=== PATIENT | female | born 1980 | race Caucasian/White ===

== ENCOUNTER 2023-08-28 09:27 | Inpatient (IN) | payer OTHER, SELFPAY ==
[2023-08-28] VITALS (11 sets, daily range): BP systolic 103–173; BP diastolic 55–92; PULSE 56–103; RESP 12–20; TEMP 36.3–37.3; O2SAT 97–100; BMI 21.6
--- NOTE | ~2023-08-28 | US_ITS ---
EXAMINATION: US ABDOMEN LIMITED CLINICAL INFORMATION: Right upper quadrant pain. Question biliary colic. COMPARISON: None available. TECHNIQUE: Real-time imaging of the right upper quadrant abdominal viscera. FINDINGS: PANCREAS: Normal. LIVER: Normal. The liver is normal in size. The liver contour is normal. Parenchymal echogenicity is normal. No focal hepatic lesion. There is no intrahepatic biliary duct dilatation seen. GALLBLADDER: There are echogenic gallstones with mild gallbladder wall thickening measuring 0.9 seen. Minimal pericolic fluid is noted COMMON BILE DUCT: Normal in caliber measuring 0.31, 0.7 cm in diameter. RIGHT KIDNEY: Normal. No hydronephrosis. No renal calculi or focal parenchymal lesions. The kidney measures 11.6 cm in maximum dimension. FREE FLUID: None. US/US abdomen limited IMPRESSION: 1. Cholelithiasis with mild gallbladder wall thickening and minimal pericolic fluid. 2. Visualized pancreas, liver, right kidney and CBD is unremarkable.
[2023-08-28 09:49] LABS: MANUAL DIFF FLAG NO
[2023-08-28 09:52] LABS: Basophils Percent Auto 0.3 % (0-2); Eosinophils Percent Auto 0.3 % (0-4); Hematocrit 40.8 % (37.0-47.0); Hemoglobin 13.3 g/dl (12.0-16.0); Imm Gran Abs Auto 0.02 X10*3/uL (0.00-0.03); Imm Gran Pct Auto 0.3 % (0.0-0.4); Lymphocytes Absolute Auto 1.5 X10*3/uL (1.2-4.9); Lymphocytes Percent Auto 19.5 % (20-40); Mean Corpuscular HGB Conc 32.6 g/dl (31.0-35.0); Mean Corpuscular Hemoglobin 28.2 pg (27.0-33.0); Mean Corpuscular Volume 86.6 fL (80.0-98.0); Mean Platelet Volume 10.4 fL (9.4-12.3); Monocytes Absolute Auto 0.7 X10*3/uL (0.1-1.2); Monocytes Percent Auto 9.1 % (2-11); Neutrophils Absolute Auto 5.6 x10*3/uL (2.0-8.3); Neutrophils Percent Auto 70.5 % (45-73); Platelet Count 228 X10*3/uL (160-400); Red Blood Count 4.71 X10*6/uL (4.20-5.50); Red Cell Distribution Width 12.8 % (11.0-16.0); White Blood Count 7.9 X10*3/uL (4.8-10.8)
[2023-08-28 10:09] LABS: Appearance Urine Cloudy; Color Urine Dark Yellow; Glucose Urine UA Negative (Negative); Leukocyte Esterase Urine Negative (Negative); Nitrite Urine Negative (Negative); PH 7.5 (5.0-9.0); Specific Gravity - Urine 1.025 (1.005-1.025); UMIC TRIGGER UACC YES; Urine Blood Trace (Negative); Urine Ketones Trace mg/dL (Negative); Urine Protein Trace mg/dL (Neg-Trace)
[2023-08-28 10:11] LABS: Bacteria Urine Trace (None Seen); Hyaline Casts Urine 0-2 /LPF (0-2); WBC Urine 0-5 /HPF (0-5)
[2023-08-28 10:16] LABS: Alanine Aminotransferase 8 U/L (0-31); Albumin Level 4.7 g/dL (3.5-5.0); Alkaline Phosphatase 56 U/L (39-117); Anion Gap 11 (12-20); Aspartate Amino Transferase 16 U/L (5-31); Bilirubin Direct 0.3 mg/dL (0.0-0.5); Bilirubin Total 0.6 mg/dL (0.0-1.0); Blood Urea Nitrogen 6 mg/dL (9-16); Calcium 9.5 mg/dL (8.4-10.2); Carbon Dioxide 26 mmol/L (22-29); Chloride 104 mmol/L (96-108); Creatinine Clr Calc Pharmacy 101.4; Estimated Glomerular Filt Rate > 60; Glucose Random 129 mg/dL (60-115); Lipase 11 U/L (8-78); Magnesium 2.1 mg/dL (1.6-2.6); Potassium 3.5 mmol/L (3.3-5.1); Sodium 137 mmol/L (135-145); Total Protein 8.3 g/dL (6.5-8.0)
[2023-08-28 10:18] LABS: HCG Quantitative < 2 mIU/mL
--- NOTE | 2023-08-28 11:36 | ED_ITS ---
HPI - General Adult General Chief complaint: Abdominal Pain Stated complaint: Gallbladder Attack Time Seen by Provider: 08/28/23 11:36 Source: patient Mode of arrival: ambulatory Limitations: no limitations History of Present Illness HPI narrative: Patient is a 42 year old assigned female at with no reported medical history presenting to the emergency department today with right upper quadrant abdominal pain. Patient states that over the last 4 days she has been having right upper quadrant abdominal pain. Patient states that she had a similar episode in May of 2023 but it resolved quicker than this. Patient denies any dizziness, lightheadedness, nausea, vomiting, fever, chills, blurry vision, double vision, loss of vision, chest pain, difficulty breathing, shortness of breath, back pain, night sweats, pain with urination, increased urinary frequency, increased urinary urgency, blood in her urine or stool, syncope or a near syncopal episode, recent trauma or falls, bowel incontinence, bladder incontinence, bowel retention, bladder retention, or any other complaints at this time. Onset (ago): day(s) (4) Location: abdomen Radiation: back Severity: mild Severity scale (1-10): 5 Quality: aching and dull Pain Consistency: constant Relieving factors: none Exacerbating factors: none Associated symptoms: denies other symptoms Treatments prior to arrival: none Related Data Home Medications Medication Instructions Recorded Confirmed buprenorphine HCl 2 mg sublingual 2 mg sublingual DAILY 08/28/23 tablet Allergies Allergy/AdvReac Type Severity Reaction Status Date / Time No Known Allergies Allergy Verified 08/28/23 09:42 Review of Systems 2 Constitutional: Constitutional: Reports no additional constitutional complaints, Denies chills, Denies fever(s) and Denies night sweats Eyes: Eyes: Reports no additional eye complaints, Denies blurry vision, Denies change in vision, Denies diplopia, Denies eye discharge, Denies loss of vision and Denies eye pain ENT: Denies dizziness Cardiovascular: Cardiovascular: Reports no additional cardiovascular complaints, Denies chest pain, Denies lightheadedness, Denies Loss of Consciousness and Denies dyspnea Respiratory: Respiratory: Reports no additional respiratory complaints and Denies dyspnea Gastrointestinal: Gastrointestinal: Reports no additional gastrointestinal complaints, Reports abdominal pain, Denies melena, Denies hematochezia, Denies change in bowel habits and Denies change in stool character Genitourinary: Genitourinary: Denies hematuria, Denies urinary frequency, Denies dysuria, Denies urinary incontinence, Denies urinary hesitancy and Denies urinary urgency Musculoskeletal: Musculoskeletal: Reports no additional musculoskeletal complaints, Denies numbness and Denies tingling Neurologic: Denies dizziness, Denies loss of vision, Denies numbness and Denies tingling Psychiatric: Psychiatric: Reports no additional psychiatric complaints Endocrine: Endocrine: Reports no additional endocrine complaints Hematologic/Lymphatic: Hematologic/Lymphatic: Reports no additional hematologic/lymphatic complaints Allergic/Immunologic: Allergic/Immunologic: Reports no additional allergic/immunologic complaints [facility] Past Medical History Attestation statement: The following information was validated with the patient. Source: old records reviewed and nursing notes reviewed Social History Social History Alcohol intake: current Alcohol intake frequency: a few times a month Smoked in Last 30 Days: No Use of substances other than those prescribed or required for medical reasons: Yes Substance Use Type: Marijuana Substance Use Frequency: Daily Last Used Substance: Days (ago) Any prior treatment program specific to substance use: No Advance Directives: No Physical Exam ED Vital Signs: Vital Signs - 24 hr 08/28/23 09:40 Temperature 98.1 F Pulse Rate 103 H Respiratory Rate 18 Blood Pressure 173/92 H Pulse Oximetry 100 Oxygen Delivery Method Room Air BMI result Body Mass Index 21.6 Const General: cooperative, no acute distress, alert and awake Nutritional Appearance: well nourished Orientation/consciousness: patient oriented x3 Limitations: no limitations HENMT Head: Yes normal to inspection and Yes atraumatic Ears: hearing grossly normal bilaterally and external ears normal General nose exam: Normal external nose present, no nasal discharge noted and no epistaxis Face and sinus: Yes normal facial exam, No abrasion and No laceration Mouth: Normal oral and palatal mucosa present, no drooling and no muffled voice Eyes General: appearance normal, both eyes and all related structures Periorbital: periorbital findings normal Eyelids: Yes eyelids normal Conjunctivae: conjunctivae normal Pupils: Equal, round and reactive pupils present EOM: EOMs intact bilaterally Neck Neck: Yes normal visual inspection, Yes full ROM and Yes no lymphadenopathy Chest Chest palpation & inspection: normal inspection of the chest Resp Effort & Inspection: normal respiratory effort and able to speak in complete sentences GI Inspection: Yes normal to inspection Palpation (GI): Soft to palpation, not firm, Tenderness to palpation present (GI) in the RUQ, no guarding and not rigid Neuro General: patient oriented x3 and moves all extremities Cranial nerves: Yes Equal, round and reactive pupils present Cognition (Neuro): normal cognition Motor exam (neuro): 5/5 motor strength present throughout Sensory Exam: Normal double simultaneous stimulation for sensation Coordination: [id number] test normal Extrem General: Yes normal to inspection, Yes full ROM and Yes capillary refill normal Psych Appearance: grossly normal Mental Status: mental status grossly normal Affect: normal affect Attitude: cooperative Thought process: Normal thought process present Thought content: Normal thought content present Insight: Good insight present (Psych) Medical Decision Making Medical Decision Making MDM Narrative: Patient is a 42 year old assigned female at with no reported medical history presenting to the emergency department today with abdominal pain. Patient's physical exam was as noted in the physical exam portion of this note. Patient's blood work was unremarkable. Patient's urine showed no acute process. Patient's abdominal US showed cholelithiasis with thickening of the gallbladder wall. I spoke to the general surgeon who stated the patient should remain NPO and be admitted to their service for surgery later today or tomorrow. They also suggested that if the patient was persistent about leaving, she could trial a liquid only diet and antibiotics. I discussed both option with the patient and she opted for surgery. I explained my physical exam findings as well as all test results to the patient. I answered all questions asked by the patient. Patient verbalized agreement and understanding with this treatment plan and admission for eventual surgery. Differential Diagnosis Differential Diagnoses: The differential diagnosis associated with the presentation includes Cholelithiasis Cholecystitis Biliary colic Abdominal pain Admission/Observation Consideration of admission/observation: Escalation of care including admission/observation considered Patient admitted to the surgical service. Consult Healthcare Provider Management of the patient was discussed with: [employer] (spoke with the surgeon as noted in the MDM Rationale portion of this note. ) Lab Data [facility] Lab Attestation statement: I reviewed the patient's lab results. My interpretation of these studies and their corresponding values is that they are grossly normal. 08/28/23 09:46 08/28/23 09:46 Labs: Lab Results 08/28/23 08/28/23 Range/Units 09:46 09:50 WBC 7.9 (4.8-10.8) X10*3/uL RBC 4.71 (4.20-5.50) X10*6/uL Hgb 13.3 (12.0-16.0) g/dl Hct 40.8 (37.0-47.0) % MCV 86.6 (80.0-98.0) fL MCH 28.2 (27.0-33.0) pg MCHC 32.6 (31.0-35.0) g/dl RDW 12.8 (11.0-16.0) % Plt Count 228 (160-400) X10*3/uL MPV 10.4 (9.4-12.3) fL Immature Gran % (Auto) 0.3 (0.0-0.4) % Neut % (Auto) 70.5 (45-73) % Lymph % (Auto) 19.5 L (20-40) % [place] % (Auto) 9.1 (2-11) % Eos % (Auto) 0.3 (0-4) % Baso % (Auto) 0.3 (0-2) % Lymph # (Auto) 1.5 (1.2-4.9) X10*3/uL [place] # (Auto) 0.7 (0.1-1.2) X10*3/uL Eos # (Auto) 0.0 (0.0-0.4) X10*3/uL Baso # (Auto) 0.0 (0.0-0.2) X10*3/uL Abs Immat Gran (auto) 0.02 (0.00-0.03) X10*3/uL Absolute Neuts (auto) 5.6 (2.0-8.3) x10*3/uL Absolute Nucleated RBC 0.000 (0.0-0.012) X10*3/uL Nucleated RBC % (auto) 0.0 (0.0-0.2) /100WBC Sodium 137 (135-145) mmol/L Potassium 3.5 (3.3-5.1) mmol/L Chloride 104 (96-108) mmol/L Carbon Dioxide 26 (22-29) mmol/L Anion Gap 11 L (12-20) BUN 6 L (9-16) mg/dL Creatinine 0.69 (0.5-1.4) mg/dL Estim Creat Clear Calc 101.4 Estimated GFR > 60 Random Glucose 129 H (60-115) mg/dL Calcium 9.5 (8.4-10.2) mg/dL Magnesium 2.1 (1.6-2.6) mg/dL Total Bilirubin 0.6 (0.0-1.0) mg/dL Direct Bilirubin 0.3 (0.0-0.5) mg/dL AST 16 (5-31) U/L ALT 8 (0-31) U/L Alkaline Phosphatase 56 (39-117) U/L Total Protein 8.3 H (6.5-8.0) g/dL Albumin 4.7 (3.5-5.0) g/dL Lipase 11 (8-78) U/L Beta HCG, Quant < 2 mIU/mL Urine Color Dark Yellow Urine Appearance Cloudy Urine pH 7.5 (5.0-9.0) Ur Specific [place] 1.025 (1.005-1.025) Urine Protein Trace (Neg-Trace) mg/dL Urine Glucose (UA) Negative (Negative) mg/dL Urine Ketones Trace (Negative) mg/dL Urine Blood Trace H (Negative) Urine Nitrite Negative (Negative) Ur Leukocyte Esterase Negative (Negative) Urine RBC 11-20 H (0-2) /HPF Urine WBC 0-5 (0-5) /HPF Ur Squamous Epith Cells 6-10 (0-2) /HPF Urine Bacteria Trace (None Seen) Hyaline Casts 0-2 (0-2) /LPF Independent Interpretation I performed an independent interpretation of an: Ultrasound Interpretation: My interpretation is in agreement with the radiologist's impression of this imaging study. - EXAMINATION: US ABDOMEN LIMITED CLINICAL INFORMATION: Right upper quadrant pain. Question biliary colic. COMPARISON: None available. TECHNIQUE: Real-time imaging of the right upper quadrant abdominal viscera. FINDINGS: PANCREAS: Normal. LIVER: Normal. The liver is normal in size. The liver contour is normal. Parenchymal echogenicity is normal. No focal hepatic lesion. There is no intrahepatic biliary duct dilatation seen. GALLBLADDER: There are echogenic gallstones with mild gallbladder wall thickening measuring 0.9 seen. Minimal pericolic fluid is noted COMMON BILE DUCT: Normal in caliber measuring 0.31, 0.7 cm in diameter. RIGHT KIDNEY: Normal. No hydronephrosis. No renal calculi or focal parenchymal lesions. The kidney measures 11.6 cm in maximum dimension. FREE FLUID: None. US/US abdomen limited IMPRESSION: 1. Cholelithiasis with mild gallbladder wall thickening and minimal pericolic fluid. 2. Visualized pancreas, liver, right kidney and CBD is unremarkable. Dictated By: Aneesh Gomez MD Signed By: Electronically signed by Aneesh Gomez MD 08/28/23 1110 Radiology Impression Discussion of test interpretation with radiology: I have reviewed the radiologist's reading. Critical Care Time Critical Care Time Critical Care Time: Yes Total Critical Care Time: 45 Attestation: I spent 45 minutes of Critical Care Time with this patient. This does not include time spent on separately reported billable procedures. Discharge Plan Discharge Clinical Impression: Cholelithiasis, Acute cholecystitis Patient Disposition: Admitted As Inpatient
--- NOTE | 2023-08-28 13:44 | PHA.MEDREC ---
Pharmacy Consult ? Medication Reconciliation Pharmacy has completed the medication reconciliation, verified with patient. Patient also stated she took a 5mg edible at 0630 with buprenorphine.
--- NOTE | 2023-08-28 16:38 | PC.NURSE ---
pt taken to pacu fluids not given
--- NOTE | 2023-08-28 16:39 | PC.NURSE ---
pt taked to OR via PACU nurses
--- NOTE | 2023-08-28 17:18 | PM.HPGS ---
History of Present Illness History of Present Illness Date of Service: 08/28/23 Chief complaint: Gallbladder Attack Narrative: Julia Marte is a 42 year old female Who started having epigastric right upper quadrant pain Sunday which is been ongoing all weekend. It kept her up all night and she has not been able the eat and drink. She did start feeling a bit better but as soon as she ate something started feeling the pain get worse. It got bad last night into today so she came into the emergency. Here ultrasound shows gallstones and some thickening of the gallbladder wall and tenderness in the right upper quadrant. Her LFTs are all within normal limits. She has never been told that she had gallbladder problems but since May she has been having smaller attacks similar to this. Review of Systems Review of Systems: Yes all other systems are reviewed and are negative [facility] Social History Social History Alcohol intake: current Alcohol intake frequency: a few times a month Smoked in Last 30 Days: No Use of substances other than those prescribed or required for medical reasons: Yes Substance Use Type: Marijuana Substance Use Frequency: Daily Last Used Substance: Days (ago) Any prior treatment program specific to substance use: No Advance Directives: No Travel History Ebola Risk: Travel/Contact With Anyone From Affected Area/s: No Has Patient Experienced Ebola Symptoms: No Meds Allergies Allergy/AdvReac Type Severity Reaction Status Date / Time No Known Allergies Allergy Verified 08/28/23 09:42 Active Medications: Current Medications Sodium Chloride (Ns) 1,000 mls @ 100 mls/hr IVCONT .Q10H EDILBERTO Last Admin: 08/28/23 16:38 Dose: Not Given Cefazolin Sodium 2 gm/ Sodium (Chloride) 100 mls @ 200 mls/hr IV ONCE STA Stop: 08/28/23 17:46 Ondansetron HCl (Ondansetron Hcl 4 Mg/2 Ml Vial) 4 mg IVPUSH Q6H PRN PRN Reason: Nausea and Vomiting Home Medications Medication Instructions Recorded Confirmed Last Taken Type buprenorphine HCl 2 mg sublingual 2 mg sublingual DAILY 08/28/23 08/28/23 08/28/23 06:30 History tablet Physical Exam Vital Signs: Vital Signs: Last Vital Signs Temp 98.4 F 08/28/23 16:50 Pulse 95 08/28/23 16:50 Resp 20 08/28/23 16:50 BP 146/79 H 08/28/23 16:50 Pulse Ox 99 08/28/23 16:50 O2 Del Method Room Air 08/28/23 16:50 BMI result Body Mass Index 21.6 Const: General: cooperative, healthy appearing, comfortable and no acute distress Orientation/consciousness: patient oriented x3 Eyes: Other: Nonicteric Neck: Other: soft supple Neck: Yes normal visual inspection Cardio: Rate: regular rate Rhythm: regular rhythm GI: Other: soft nondistended generally nontender at this point except with deep palpation little bit in the right upper quadrant area. Skin: Other: Nonicteric Neuro: General: patient oriented x3 Psych: Appearance: grossly normal Affect: normal affect Attitude: cooperative Thought process: Normal thought process present Thought content: Normal thought content present Insight: Good insight present (Psych) Judgement: Good judgement present (Psych) Results Results Labs: Short CBC 08/28/23 Range/Units 09:46 WBC 7.9 (4.8-10.8) X10*3/uL Hgb 13.3 (12.0-16.0) g/dl Hct 40.8 (37.0-47.0) % Plt Count 228 (160-400) X10*3/uL BMP 08/28/23 09:46 Sodium 137 Potassium 3.5 Chloride 104 Carbon Dioxide 26 BUN 6 L Creatinine 0.69 Calcium 9.5 Liver Function 08/28/23 Range/Units 09:46 Total Bilirubin 0.6 (0.0-1.0) mg/dL Direct Bilirubin 0.3 (0.0-0.5) mg/dL AST 16 (5-31) U/L ALT 8 (0-31) U/L Alkaline Phosphatase 56 (39-117) U/L Albumin 4.7 (3.5-5.0) g/dL Urine 08/28/23 Range/Units 09:50 Urine Color Dark Yellow Urine Appearance Cloudy Urine pH 7.5 (5.0-9.0) Ur Specific [place] 1.025 (1.005-1.025) Urine Protein Trace (Neg-Trace) mg/dL Urine Glucose (UA) Negative (Negative) mg/dL Assessment and Plan (1) Acute cholecystitis: Status: Acute Plan 42-year-old female with epigastric pain right upper quadrant probably secondary to biliary colic maybe early cholecystitis. Patient has been having ongoing symptoms since of May but now the last couple days it has been much worse. She traveled during back home here while not feeling well and at this point has not made much improvement such that she still can not eat or drink well without getting this pain. At this point I think carrying out laparoscopic cholecystectomy is her best option for this known biliary disease. Risks and benefits discussed with patient including but not limited to bleeding infection the possible open procedure possible bowel injury possible bile duct injury possible organ injury and despite tissue wishes to proceed. Will plan on carrying out her surgery today. She talked about wanting to travel this weekend to go see her son sports event in [place] and I did discuss that I am not convinced that this can happen but that I think that she really does need to have her gallbladder out otherwise there is a good chance that she has a bad attack before the weekend. She is in agreement to having the surgery in and seeing how she does afterwards. Quality Stroke Does the patient have a stroke diagnosis?: No VTE Prior VTE?: No VTE Risk Level:: Surgical - low VTE Device Contraindication: N/A - Device Ordered VTE Drug Contraindication: Treatment Not Indicated Procedures Date of Service Date of Service: 08/28/23
--- NOTE | 2023-08-28 19:46 | P.OP_ITS ---
Operative Note Operative Note Date of Service: 08/28/23 Narrative: Preop diagnosis-- biliary colic chronic cholecystitis Postop diagnosis-- acute and chronic cholecystitis Procedure done-- laparoscopic cholecystectomy Surgeon--Mykel Anesthesia--general endotracheal tube anesthesia Patient is a 42-year-old female who has been having epigastric pain nausea vomiting for the last several days. Workup in the ER revealed normal labs but ultrasound showed thickened gallbladder gallstones and she was tender in the right upper quadrant area with ultrasound. As a result she comes in now to undergo laparoscopic cholecystectomy Findings- 2 large stones impacted in the gallbladder neck gallbladder chronically thickened. Procedure-- Patient is brought to the operative room and under anesthesia guidance intubated. She a compression stockings placed before induction received preo perative antibiotics. Her abdomen was prepped and draped in standard surgical fashion. An infraumbilical incision was created after numbing of the area with 0.25% Marcaine and epinephrine. Dissection was carried down to the anterior abdominal wall fascia which was grasped with Tutu is and transected. 0 Vicryl pursestring suture placed. A son trocar introduced pneumoperitoneum established to 15 mmHg pressure. The gallbladder was identified in the right upper quadrant. She was positioned had up and little bit left side down. Three 5 mm ports were then placed under direct visualization 1 in the epigastric area into in a right upper quadrant area. The gallbladder was grasped and retracted superiorly and laterally. The neck of the gallbladder was dissected and it was felt that there was a stone impacted here. This was elevated and eventually moved out and now we can not retract the neck of the gallbladder little bit better laterally. The cystic duct was dissected out and then a vessel that was determined to be the cystic artery. Cystic duct was clipped twice down 1 up and transected the cystic artery also was transected and clipped. In further dissection was noted and we could see before a large right hepatic artery and coming off of this was another branch of the cystic artery. With careful dissection week were able is stay close to the gallbladder and the larger artery went into the liver while 2 other branches went straight into the gallbladder these were eventually clipped and transected. Staying close to the gallbladder all the time we were able to with the hook cautery get off the liver base. This was achieved in the gallbladder was placed in Endo-Catch bag and removed from the infraumbilical port site. Because a little stones were so large we required making the fascial opening moderately bigger to get out the gallbladder which was thickened distended and these large stones. New peritoneum was then reestablished and the cystic duct stump and clipped vessels were examined and looked intact. The liver base looks fine. The ports were then removed under direct visualization was no bleeding going on. The infraumbilical port site was then closed with running 0 Vicryl suture. This closed the fascial opening well the umbilical area was then reimbricated as the process of opening up the fascia it was elevated a little bit at the umbilical stalk. 4-0 Vicryl was then used to tack down the umbilical area a little bit better to create a good cosmetic result. Four Monocryl was then used in a running subcuticular fashion to approximate the skin edges and then used on the 5 mm ports to close the skin area. More local had been used in all these ports and the infraumbilical port area on the fascia. At the end of the case all sponge instrument and needle counts were correct estimated blood loss was about 5 cc specimen sent was the gallbladder.
[2023-08-28] MEDS: droPERidol 5 MG/2 ML VIAL 0.625 MG IVPUSH (19:48)
[2023-08-29] MEDS: 0.9 % Sodium Chloride 1,000 ML 100 ML IVCONT (00:47)
[2023-08-29] MEDS: Ketorolac Tromethamine 30 MG/ML VIAL 15 MG IVPUSH (00:53)
[2023-08-29 03:52] VITALS: BP 104/55; PULSE 60; RESP 16; TEMP 37.2; O2SAT 98
[2023-08-29] MEDS: Famotidine 20 MG TABLET PO (06:17)
[2023-08-29 08:00] VITALS: BP 118/63; PULSE 57; RESP 18; TEMP 36.9; O2SAT 99
[2023-08-29] MEDS: Buprenorphine HCL 2 MG TAB.SUBL SUBLINGUAL (08:18)
--- NOTE | 2023-08-29 08:33 | HO.POSTANES ---
Post Anesthesia Evaluation Post Anesthesia Evaluation Date of Service: 08/29/23 Vital Signs: Vital Signs Temp Pulse Resp BP Pulse Ox O2 Del Method 08/29/23 08:00 98.5 F 57 18 118/63 99 Room Air 08/29/23 03:52 98.9 F 60 16 104/55 L 98 Room Air Anesthesia: General Endotracheal-GETA Mental Status: Awake Pain Control: Satisfactory Nausea/Vomiting: None Hydration: Adequate Anesthesia-Related Issues: No Anes. Related Issues
--- NOTE | 2023-08-29 09:34 | MHC.CM.PN ---
CM MET WITH PT AT BEDSIDE. PT IS INDEPENDENT AT BASELINE . 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 WILLING TO COMPLETE A HCP NO PCP ([facility] PROVIDED) DP: HOME, NO SERVICES ANTICIPATED. SPOUSE WILL TRANSPORT HOME. CM WILL CONTINUE TO FOLLOW FOR ANY CHANGE IN DC PLAN/NEEDS
--- NOTE | 2023-08-29 10:08 | P.PNGS_ITS ---
Subjective Subjective Date of Service: 08/29/23 Interval history: Underwent laparoscopic cholecystectomy last 9 has good pain control feels well overall states she is ready to go home tolerating diet Physical Exam 2 Vital Signs: Vital Signs: Last Vital Signs Temp 98.5 F 08/29/23 08:00 Pulse 57 08/29/23 08:00 Resp 18 08/29/23 08:00 BP 118/63 08/29/23 08:00 Pulse Ox 99 08/29/23 08:00 O2 Del Method Room Air 08/29/23 08:00 O2 Flow Rate 2 08/28/23 19:49 FiO2 41 08/28/23 20:04 BMI result Body Mass Index 21.6 Const: General: comfortable and no acute distress Eyes: Other: nonicteric Resp: Effort & Inspection: normal respiratory effort Cardio: Rate: regular rate GI: Other: dressings dry Palpation (GI): Soft to palpation, not firm and no guarding Objective Data Active Medications Buprenorphine HCl (Buprenorphine Hcl 2 Mg Tab.Subl) 2 mg SUBLINGUAL DAILY [facility] Last Admin: 08/29/23 08:18 Dose: 2 mg Documented By: SD Famotidine (Famotidine 20 Mg Tablet) 20 mg PO BID@0630,1630 [facility] Last Admin: 08/29/23 06:17 Dose: 20 mg Documented By: NIEVES Sodium Chloride (Ns) 1,000 mls @ 100 mls/hr IVCONT .Q10H [facility] Last Admin: 08/29/23 02:03 Dose: Not Given Documented By: NIEVES Non-Admin Reason: IV Running Cefazolin Sodium 1 gm/ Sodium (Chloride) 50 mls @ 100 mls/hr IV Q8H [facility] Last Infusion: 08/29/23 07:10 Dose: Infused Documented By: SD Ketorolac Tromethamine (Ketorolac Tromethamine 30 Mg/Ml Vial) 15 mg IVPUSH Q6H PRN PRN Reason: Pain, Severe (Pain Scale 7-10) Stop: 09/02/23 19:28 Last Admin: 08/29/23 00:53 Dose: 15 mg Documented By: NIEVES Lorazepam (Lorazepam 2 Mg/Ml Vial) 1 mg IVPUSH ONCE PRN PRN Reason: sleep Ondansetron HCl (Ondansetron Hcl 4 Mg/2 Ml Vial) 4 mg IVPUSH Q6H PRN PRN Reason: Nausea and Vomiting Sodium Chloride (0.9 % Sodium Chloride Flush 3 Ml Syringe) 3 ml IVFLUSH QSHIFT [facility] Last Admin: 08/29/23 08:18 Dose: Not Given Documented By: SD Non-Admin Reason: IV Running Labs 08/28/23 09:46 08/28/23 09:46 Labs: Laboratory Results - last 24 hr 08/28/23 08/28/23 09:46 09:50 Anion Gap 11 L Estim Creat Clear Calc 101.4 Estimated GFR > 60 Random Glucose 129 H Calcium 9.5 Magnesium 2.1 Total Bilirubin 0.6 Direct Bilirubin 0.3 AST 16 ALT 8 Alkaline Phosphatase 56 Total Protein 8.3 H Albumin 4.7 Lipase 11 Beta HCG, Quant < 2 Urine Color Dark Yellow Urine Appearance Cloudy Urine pH 7.5 Ur Specific [place] 1.025 Urine Protein Trace Urine Glucose (UA) Negative Urine Ketones Trace Urine Blood Trace H Urine Nitrite Negative Ur Leukocyte Esterase Negative Urine RBC 11-20 H Urine WBC 0-5 Ur Squamous Epith Cells 6-10 Urine Bacteria Trace Hyaline Casts 0-2 Procedures Date of Service Date of Service: 08/29/23 Progress Note: A&P Assessment and plan (1) Acute cholecystitis: Status: Acute Assessment and Plan: status post laparoscopic cholecystectomy doing very well tolerating diet discharge instructions given follow-up in the office Time Spent With Patient Time: Total time managing care of this patient today ____ minutes. Quality Stroke Does the patient have a stroke diagnosis?: No VTE Prior VTE?: No VTE Risk Level:: Surgical - low VTE Device Contraindication: N/A - Device Ordered VTE Drug Contraindication: Treatment Not Indicated
--- NOTE | 2023-08-29 10:29 | MHC.CM.PN ---
DP: PT HAS BEEN MEDICALLY CLEARED FOR DC HOME, NO SERVICES. [facility] WILL TRANSPORT HOME.
--- NOTE | 2023-08-30 09:02 | PM.DS ---
DS: Providers Provider Date of Service: 08/29/23 Date of admission: 08/28/23 12:42 Primary care physician: Reji Physician Attending physician on admission: Maddy Hogue Attending physician on discharge: Trevon Saucedo DS: Diagnosis Discharge Diagnosis (1) Acute cholecystitis: Status: Acute DS: Summary Hospital Course Hospital Course: HPI AT ADMISSION: Julia Marte is a 42 year old female Who started having epigastric right upper quadrant pain Sunday which is been ongoing all weekend. It kept her up all night and she has not been able the eat and drink. She did start feeling a bit better but as soon as she ate something started feeling the pain get worse. It got bad last night into today so she came into the emergency. Here ultrasound shows gallstones and some thickening of the gallbladder wall and tenderness in the right upper quadrant. Her LFTs are all within normal limits. She has never been told that she had gallbladder problems but since May she has been having smaller attacks similar to this. HOSPITAL COURSE: She was admitted to the surgical service for further treatment of the acute cholecystitis. It was recommended to proceed with laparoscopic cholecystectomy and she was added onto the OR schedule for that day. On 08/28/23, a laparoscopic cholecystectomy was performed by Dr. Hogue without immediate complication. She had 2 large stones impacted in the gallbladder neck and gallbladder chronically thickened.The patient tolerated the procedure well. She had an uncomplicated recovery course. On POD #1, she felt well with adequate pain control. She was ambulating without difficulty. She was tolerating a solid diet. Her abdomen was benign with clean and intact dressings. She felt ready for discharge. She was discharged to home on 08/29/23 in stable condition. She is to follow up in the office in [address] Saucedo. Status at Discharge Functional status at discharge: independent ambulation Overall status at discharge: patient is progressing back to baseline Time Attestation Discharge coordination time: Less than 30 minutes Quality: Safe Use of Opioids Does Pt have an Active Cancer Diagnosis on the Problem List?: No Quality: Stroke Does the patient have a stroke diagnosis?: No Physical Exam Vital Signs: Vital Signs: Last Vital Signs Temp 98.5 F 08/29/23 08:00 Pulse 57 08/29/23 08:00 Resp 18 08/29/23 08:00 BP 118/63 08/29/23 08:00 Pulse Ox 99 08/29/23 08:00 O2 Del Method Room Air 08/29/23 08:00 O2 Flow Rate 2 08/28/23 19:49 FiO2 41 08/28/23 20:04 BMI result Body Mass Index 21.6 Const: General: comfortable, no acute distress and alert Orientation/consciousness: patient oriented x3 Resp: Effort & Inspection: normal respiratory effort GI: Inspection: No distended and Yes incision (clean/intact dressings) Palpation (GI): Soft to palpation, Tenderness to palpation present (GI), no guarding and not rigid Skin: General skin exam: no rashes or lesions noted Neuro: General: patient oriented x3 DS: Data Data Completed and Pending Pending studies at discharge: Pending at discharge 08/28/23 18:14 Surgical [PTH] Routine Discharge Plan Discharge Anticipated Discharge Date/Time: 08/29/23 09:49 Patient Disposition: Home, Self-Care Discharge Diagnosis: acute cholecystitis, s/p laparoscopic cholecystectomy Referrals: Trevon Saucedo MD [Physician] - 2 Weeks Physician,None [Primary Care Provider] - 1 Week Discharge Medications: New oxycodone-acetaminophen [Percocet] 5-325 mg tablet 1 tab PO Q4-6H PRN (Reason: pain) Qty: 15 0RF Rx Instructions: Partial Fill upon patient request. ibuprofen 600 mg tablet 600 mg PO Q6H PRN (Reason: pain) Qty: 30 0RF Continued buprenorphine HCl 2 mg tablet, sublingual 2 mg sublingual DAILY Discharge Orders: Discharge Order (Routine); Ordered 08/29/23 Ordered By: Trevon Saucedo Diet: Low fat, low cholesterol Activity on Discharge: No heavy lifting Stand Alone Forms: Patient Portal Discharge page Activity Restrictions/Additional Instructions: If the incision area is tender, you may apply an ice pack for short intervals (No more than 20 minutes on, followed by at least 20 minutes off). Do not apply heat. Do not use creams, lotions, or topical antibiotics. These can cause infection or allergic reaction. Ok to shower tomorrow Aug 30. Remove bandaids in 2 days and replace. You have steri strips (small white cloth strips) covering your incision- these will fall off ~1 week. Follow up in office with in 2 weeks. ([phone]) No heavy lifting (>10-20lbs) or strenuous activity! Call Your Doctor If: -Your temperature exceeds 101.5? F -You experience excessive pain or swelling -You have an unexpected reaction to medication -You have excessive bleeding -You experience continued vomiting/nausea -Your incision begins to separate -Your incision shows signs of infection such as increased redness, swelling, excessive pain, drainage (light blood or clear fluid is normal) or heat Care Plan Goals: Return to baseline health and resume normal activities following recovery period. Health Concerns: acute cholecystitis Plan of Treatment: s/p laparoscopic cholecystectomy f/u in office Assessment: Doing well post op. Discharge Date/Time: 08/29/23 12:21
== END 2023-08-29 12:21 | disposition home or self-care (01) | DRG 263 ==
LOC: HO.ED 11:36 → HO.SSS 12:34 → HO.EDOVER 19:13 → HO.S3 19:17
PROVIDERS: Emergency Medicine; Admitting Provider Surgery; Emergency Provider Emergency Medicine; Visit Provider Surgery
PROC: 0FT44ZZ Resection of Gallbladder, Percutaneous Endoscopic Approach (ICD-10-PCS; CPT 47562; principal; 2023-08-28 17:00)
DX: K80.13 Calculus of gallbladder with acute and chronic cholecystitis with obstruction (principal); F17.290 Nicotine dependence, other tobacco product, uncomplicated; Z71.6 Tobacco abuse counseling
CPT/HCPCS: 47562; 36415; 76705; 80048; 80076; 81001; 83690; 83735; 84702; 85025; 88304; 99221; 99284; J0131; J0571; J0665; J0690; J1100; J1790; J1885; J2250; J2405; J2704; J3010

== ENCOUNTER → 2023-08-28 12:29 | Outpatient (BNV) | payer OTHER, SELFPAY | PROVIDERS: Emergency Provider Emergency Medicine; Visit Provider Surgery | DX: K81.0 Acute cholecystitis (principal) | CPT/HCPCS: 47562; 99024; 99222 ==